=== PATIENT | female | born 1965 | race Caucasian/White ===

== ENCOUNTER 2017-08-07 08:20 | Emergency (ER) | payer SELFPAY ==
[2017-08-07 08:57] LABS: ADD MAN DIFF? NO
[2017-08-07 09:00] LABS: BASO # 0.1 x10^3/uL (0.0-0.2); BASO % 1 % (0-3); EOS % 1 % (0-3); HEMATOCRIT 49.1 % (36.0-47.0); HEMOGLOBIN 16.6 g/dL (12.0-15.5); LYMPH # 1.6 x10^3/uL (1.0-4.8); LYMPH % 18 % (24-48); MEAN CORPUSCULAR HEMOGLOBIN 31 pg (25-35); MEAN CORPUSCULAR HGB CONC 34 g/dL (31-37); MEAN CORPUSCULAR VOLUME 93 fL (79-100); MONO # 0.4 x10^3/uL (0.0-1.1); MONO % 4 % (0-9); NEUT # 6.6 x10^3uL (1.8-7.7); NEUT % 76 % (31-73); PLATELET COUNT 335 x10^3/uL (140-400); RED BLOOD COUNT 5.29 x10^6/uL (3.50-5.40); RED CELL DISTRIBUTION WIDTH 13.1 % (11.5-14.5); WHITE BLOOD COUNT 8.7 x10^3/uL (4.0-11.0)
[2017-08-07] MEDS ORDERED: MORPHINE SULFATE 4 MG/ML DISP.SYRIN. IV/SQ (09:00)
[2017-08-07 09:03] LABS: BILIRUBIN,URINE SMALL (NEG); CLARITY,URINE TURBID; COLOR,URINE AMBER; GLUCOSE,URINE NEGATIVE (NEG); NITRITE,URINE NEGATIVE (NEG); PH,URINE 5.5; PROTEIN,URINE NEGATIVE (NEG-TRACE)
[2017-08-07 09:08] LABS: BARBITURATES NEG (NEG); BENZODIAZEPINES NEG (NEG); CANNABINOIDS NEG (NEG); COCAINE NEG (NEG); METHADONE NEG (NEG); OPIATES NEG (NEG); PHENCYCLIDINE NEG (NEG)
[2017-08-07 09:11] LABS: AMPHETAMINE/METHAMPHETAMINE NEG (NEG); ANION GAP 7 (6-14); BLOOD UREA NITROGEN 16 mg/dL (7-20); CALCIUM 9.7 mg/dL (8.5-10.1); CARBON DIOXIDE 30 mmol/L (21-32); CHLORIDE 102 mmol/L (98-107); ETHANOL, URINE NEG (NEG); GFR 58.7; GLUCOSE 117 mg/dL (70-99); POTASSIUM 3.7 mmol/L (3.5-5.1); SODIUM 139 mmol/L (136-145)
[2017-08-07 09:14] LABS: INR 1.1 (0.8-1.1); PROTHROMBIN TIME PATIENT 13.2 SEC (11.7-14.0)
[2017-08-07 09:15] LABS: ALBUMIN 3.9 g/dL (3.4-5.0); ALK PHOS 86 U/L (46-116); ALT (SGPT) 15 U/L (14-59); AST (SGOT) 12 U/L (15-37); DIRECT BILIRUBIN 0.1 mg/dL (0.0-0.2); LIPASE 67 U/L (73-393); TOTAL BILIRUBIN 0.5 mg/dL (0.2-1.0); TOTAL PROTEIN 7.8 g/dL (6.4-8.2)
[2017-08-07 09:19] LABS: SQUAMOUS EPITHELIAL CELL,UR MANY /LPF
[2017-08-07 09:20] LABS: TROPONINI < 0.017 ng/mL (0.000-0.055)
[2017-08-07 09:20] LABS: BACTERIA,URINE MODERATE /HPF (0-FEW); RBC,URINE OCC /HPF (0-2)
[2017-08-07 09:25] LABS: NT-PRO BNP 33 pg/mL (0-124)
[2017-08-07 09:25] LABS: CREATINE KINASE 80 U/L (26-192)
[2017-08-07 09:26] LABS: CKMB MASS < 0.5 ng/mL (0.0-3.6)
[2017-08-07] MEDS: IV NORMAL SALINE 1000ML BAG 1,000 ML IV (09:26)
[2017-08-07] MEDS: fentaNYL PF VIAL 100 MCG/2 ML VIAL IV (09:27)
== END 2017-08-07 11:18 | disposition left against medical advice (07) ==
LOC: ER 08:20 → 5 SOUTH 10:26
DX: R53.1 Weakness (principal); N30.00 Acute cystitis without hematuria; F17.200 Nicotine dependence, unspecified, uncomplicated; J44.9 Chronic obstructive pulmonary disease, unspecified; Z88.5 Allergy status to narcotic agent; Z88.6 Allergy status to analgesic agent
CPT/HCPCS: 36415; 70450; 71045; 80048; 80076; 80307; 81001; 82553; 83690; 83735; 83880; 84484; 85025; 85610; 87086; 93005; 96361; 96374; 99285-25; J3010; J7030

== ENCOUNTER 2018-01-27 20:41 | Emergency (ER) | payer SELFPAY ==
[~2018-01-27] VITALS: Ht 160 cm; Wt 59.0 kg
[~2018-01-27 20:41] MED LIST: SULF1TAB24 PO
[2018-01-27 21:20] VITALS: BP 129/60
[2018-01-27 21:39] LABS: BILIRUBIN,URINE NEGATIVE (NEG); CLARITY,URINE CLEAR; COLOR,URINE YELLOW; NITRITE,URINE POSITIVE (NEG); PH,URINE 6.5; PROTEIN,URINE NEGATIVE (NEG-TRACE)
[2018-01-27 21:48] LABS: BACTERIA,URINE MANY /HPF (0-FEW); RBC,URINE 0 /HPF (0-2); SQUAMOUS EPITHELIAL CELL,UR FEW /LPF
[2018-01-27 21:49] LABS: AMORPHOUS SEDIMENT,UR PRESENT /HPF
[2018-01-27] MEDS ORDERED: SULF1TAB24 PO (23:02)
--- NOTE | 2018-01-27 23:02 | PHYS DOC ---
Past Medical History Past Medical History: Asthma, COPD, Depression Past Surgical History: Tubal ligation Alcohol Use: Rarely Drug Use: None Adult General Chief Complaint Chief Complaint: URINARY RETENTION HPI HPI Patient is a 53 year old female with history of asthma, COPD who presents with urinary frequency and urgency with urinary incontinence. Symptom onset was approximately 2 weeks ago. No fever chills, nausea vomiting or sweats. No flank pain. No history of pyelonephritis or kidney stones. Patient does not currently have a primary care physician has has not been able to obtain care for his medical condition prior to today's visit.[] Review of Systems Review of Systems Review of symptoms as per history of present illness. All other review symptoms are negative. All other systems were reviewed and found to be within normal limits, except as documented in this note. Current Medications Current Medications Current Medications Medications (Trade) Dose Ordered Sig/Yovani Start Time Stop Time Status Last Admin Dose Admin Trimethoprim/ Sulfamethoxazole (Bactrim Ds) 1 tab 1X ONCE 01/27/18 23:15 01/27/18 23:16 Allergies Allergies Allergies Coded Allergies Type Severity Reaction Last Updated Verified aspirin Allergy Intermediate vomiting 01/27/18 Yes codeine Allergy Intermediate vomiting 08/07/17 Yes hydrocodone Allergy Intermediate vomiting 01/27/18 Yes Physical Exam Physical Exam Constitutional: Well developed, well nourished, no acute distress, non-toxic appearance. [] HENT: Normocephalic, atraumatic, bilateral external ears normal, oropharynx moist, nose normal. [] Eyes: PERRLA, EOMI, conjunctiva normal, no discharge. [] Neck: Normal range of motion, no tenderness, supple, no stridor. [] Cardiovascular:Heart rate regular rhythm, no murmur [] Lungs & Thorax: Bilateral breath sounds clear to auscultation [] Abdomen: Bowel sounds normal, soft, no tenderness, no masses, no pulsatile masses. [] Skin: Warm, dry. [] Back: No tenderness, no CVA tenderness. [] Extremities: No tenderness. [] Current Patient Data Vital Signs Vital Signs Date Time Temp Pulse Resp B/P (MAP) Pulse Ox O2 Delivery O2 Flow Rate FiO2 01/27/18 21:20 97.7 52 16 129/60 (83) 98 Room Air 97.7 Lab Values Laboratory Tests Test 01/27/18 21:20 Urine Collection Type Unknown Urine Color Yellow Urine Clarity Clear Urine pH 6.5 Urine Specific [place] 1.025 Urine Protein Negative mg/dL (NEG-TRACE) Urine Glucose (UA) Negative mg/dL (NEG) Urine Ketones (Stick) Negative mg/dL (NEG) Urine Blood Negative (NEG) Urine Nitrite Positive (NEG) Urine Bilirubin Negative (NEG) Urine Urobilinogen Dipstick 1.0 mg/dL (0.2 mg/dL) Urine Leukocyte Esterase Moderate (NEG) Urine RBC 0 /HPF (0-2) Urine WBC 11-20 /HPF (0-4) Urine Squamous Epithelial Cells Few /LPF Urine Amorphous Sediment Present /HPF Urine Bacteria Many /HPF (0-FEW) Urine Mucus Mod /LPF EKG EKG [] Radiology/Procedures Radiology/Procedures [] Course & Med Decision Making Course & Med Decision Making Pertinent Labs and Imaging studies reviewed. (See chart for details) [Abdomen soft, nontender. Persistent biotics given in the ED. Recommend close PCP follow-up for testing urine. Return precautions reviewed] Dragon Disclaimer Dragon Disclaimer This electronic medical record was generated, in whole or in part, using a voice recognition dictation system. Departure Departure Impression: Primary Impression: Urinary tract infection Additional Impression: Urinary incontinence Disposition: HOME, SELF-CARE Condition: GOOD Referrals: NO PCP (PCP) Patient Instructions: Urinary Tract Infection Additional Instructions: Please increase fluids and take antibiotics as directed. Follow-up with PCP in one week for reevaluation. Scripts Sulfamethoxazole/Trimethoprim (BACTRIM DS TABLET) 1 Each Tablet 1 TAB PO BID, #14 TAB Prov: RAJ JONES DO 01/27/18 Problem Qualifiers RAJ JONES DO Jan 27, 2018 23:02
[2018-01-27] MEDS ORDERED: SMZ/TMP 800/160MG TABLET. PO ONE (23:15)
== END 2018-01-27 23:32 | disposition home or self-care (01) ==
LOC: ER 20:41
DX: N39.0 Urinary tract infection, site not specified (principal); J44.9 Chronic obstructive pulmonary disease, unspecified; F32.9 Major depressive disorder, single episode, unspecified; Z98.51 Tubal ligation status; Z88.5 Allergy status to narcotic agent; Z88.6 Allergy status to analgesic agent
CPT/HCPCS: 81001; 87086; 99284

== ENCOUNTER 2020-11-03 09:26 | Emergency (ER) | payer SELFPAY ==
[~2020-11-03] VITALS: Ht 162.6 cm; Wt 72.7 kg
--- NOTE | 2020-11-03 10:21 | PHYS DOC ---
Past Medical History Past Medical History: Asthma, COPD, Depression Past Surgical History: Tubal ligation Smoking Status: Current Every Day Smoker Additional Information: 1 PPD Alcohol Use: None Drug Use: None General Adult EDM: Chief Complaint: HEADACHE HPI: HPI: Patient is a 55-year-old female here for multiple issues. States she has had waxing and waning episodes of fatigue, headache and occasional dizziness without any falls. States it is from dehydration as patient self admits that she has poor fluid/water intake stating "I just do not drink any, I do not like it". Reports she was at a October constitution party outside, was in the heat and swimming all day and had x1 alcoholic beverage when later in the evening she had another episode prompting her to sit down for a while. Reports her sister was concerned about potential dehydration and advised her to come into the ER for evaluation at that time. Nonetheless, patient has been talking to her sister more and there was ongoing concern about dehydration and wanting answers about the cause of patient's fatigue and headache so patient was transported to our ER via POV for evaluation. There has been no fever, medication changes, known sick contacts or long distance travel, chest pain, ripping or tearing sensation in chest, shortness of breath, abdominal pain, dysuria, changes in motor or sensory or neuro function. Patient admits tobacco abuse, reports drinking her first alcoholic beverage in 10 years this past 30 October constitution party, denies any history of illicit drug use Review of Systems: Review of Systems: Fourteen body systems of review of systems have been reviewed. See HPI for pertinent positives and negative responses, other amador all other systems are negative, non-pertinent or non-contributory Heart Score: C/O Chest Pain: No HEART Score for Chest Pain: HEART Score for Chest Pain Response (Comments) Value History Slighlty/Non-Suspicious 0 ECG Normal 0 Age >45 - < 65 1 Risk Factors 1 or 2 Risk Factors 1 Troponin < Normal Limit 0 Total 2 Risk Factors: Risk Factors: DM, Current or recent (<one month) smoker, HTN, HLP, family history of CAD, obesity. Risk Scores: Score 0 - 3: 2.5% MACE over next 6 weeks - Discharge Home Score 4 - 6: 20.3% MACE over next 6 weeks - Admit for Clinical Observation Score 7 - 10: 72.7% MACE over next 6 weeks - Early Invasive Strategies Allergies: Allergies: Allergies Coded Allergies Type Severity Reaction Last Updated Verified aspirin Allergy Intermediate vomiting 01/27/18 Yes codeine Allergy Intermediate vomiting 08/07/17 Yes hydrocodone Allergy Intermediate vomiting 01/27/18 Yes ibuprofen Allergy Intermediate UNKNOWN 11/03/20 Yes oxycodone Allergy Intermediate UNKNOWN 11/03/20 Yes Physical Exam: PE: Constitutional: Well developed, well nourished, no acute distress, non-toxic appearance. HENT: Normocephalic, atraumatic, bilateral external ears normal, oropharynx moist, no oral exudates, nose normal. Eyes: PERRLA, EOMI, conjunctiva normal, no discharge. Neck: Normal range of motion, no tenderness, supple, no stridor. Cardiovascular: Heart rate regular, sinus rhythm, no murmurs rubs or gallops Lungs & Thorax: Bilateral breath sounds clear to auscultation Abdomen: Bowel sounds normal, soft, no tenderness, no masses, no pulsatile masses. Nonsurgical abdomen, no peritoneal signs Skin: Warm, dry, no erythema, no rash. Back: No tenderness, no CVA tenderness. Extremities: No tenderness, no cyanosis, no clubbing, ROM intact, no edema. Neurologic: Alert and oriented X 3, cranial nerves II through XII intact, gait unremarkable, normal motor & sensory function, no focal deficits noted. Psychologic: Affect normal, judgement normal, mood normal. Current Patient Data: Labs: Laboratory Tests Test 11/03/20 10:37 White Blood Count 6.0 x10^3/uL Red Blood Count 4.77 x10^6/uL Hemoglobin 14.6 g/dL Hematocrit 43.7 % Mean Corpuscular Volume 92 fL Mean Corpuscular Hemoglobin 31 pg Mean Corpuscular Hemoglobin Concent 33 g/dL Red Cell Distribution Width 13.3 % Platelet Count 316 x10^3/uL Neutrophils (%) (Auto) 45 % Lymphocytes (%) (Auto) 48 % Monocytes (%) (Auto) 5 % Eosinophils (%) (Auto) 1 % Basophils (%) (Auto) 1 % Neutrophils # (Auto) 2.7 x10^3/uL Lymphocytes # (Auto) 2.9 x10^3/uL Monocytes # (Auto) 0.3 x10^3/uL Eosinophils # (Auto) 0.1 x10^3/uL Basophils # (Auto) 0.1 x10^3/uL Sodium Level 143 mmol/L Potassium Level 4.3 mmol/L Chloride Level 108 mmol/L Carbon Dioxide Level 28 mmol/L Anion Gap 7 Blood Urea Nitrogen 15 mg/dL Creatinine 1.0 mg/dL Estimated GFR (Cockcroft-Gault) 58.0 BUN/Creatinine Ratio 15 Glucose Level 100 mg/dL Calcium Level 9.4 mg/dL Total Bilirubin 0.4 mg/dL Aspartate Amino Transf (AST/SGOT) 18 U/L Alanine Aminotransferase (ALT/SGPT) 19 U/L Alkaline Phosphatase 102 U/L Creatine Kinase 136 U/L Troponin I Quantitative < 0.017 ng/mL Total Protein 6.8 g/dL Albumin 4.0 g/dL Albumin/Globulin Ratio 1.4 Current Medications Medications (Trade) Dose Ordered Sig/Yovani Route PRN Reason Start Time Stop Time Status Last Admin Dose Admin Sodium Chloride 1,000 ml @ 1,000 mls/hr 1X ONCE IV 11/03/20 10:30 11/03/20 11:29 DC 11/03/20 10:40 Vital Signs: Vital Signs Date Time Temp Pulse Resp B/P (MAP) Pulse Ox O2 Delivery O2 Flow Rate FiO2 11/03/20 09:41 98.1 50 17 134/61 (83) 99 Room Air 98.1 EKG: EKG: EKG ordered and interpreted by myself 1049 hrs. as sinus bradycardia at 45 bpm, unremarkable intervals, no axis deviation, no acute ischemic findings, no STEMI Radiology/Procedures: Radiology/Procedures: [] Course & Med Decision Making: Course & Med Decision Making ABCs unremarkable. I disclosed entirety of ER findings and discussed most likely diagnosis of headache secondary to dehydration. Other diagnoses were discussed with patient such as stroke and other emergent pathology but all deemed less likely causes of patient's presentation. During decision to defer any further work-up due to asymptomatic patient with no focal deficits or other complaints. Plan of care discussed at length with need for close outpatient follow-up to review today's ER visit stressed. Strict return precautions were also discussed at length with good understanding by patient. Patient voiced understanding and agreement with the plan. Patient knows to come back for repeat evaluation if concerning signs or symptoms present prior to outpatient follow-up. Hemodynamically stable, ambulatory and well-appearing at time of disposition. Dragon Disclaimer: Dragon Disclaimer: This electronic medical record was generated, in whole or in part, using a voice recognition dictation system. Departure Departure Impression: Primary Impression: Dehydration Additional Impression: Headache Disposition: HOME / SELF CARE / HOMELESS Condition: IMPROVED Referrals: NO PCP (PCP) Additional Instructions: You were seen for a headache. The etiology of which is likely related to dehydration due to your poor water intake. You should increase this. As also disclosed, you should use resources given to you at ER departure to establish care with a local primary care physician to follow-up on today's visit and discuss need for further work-up if needed. You should return to the ED if you develop worsening pain, vision change, numbness, tingling, weakness, vomiting, fever, neck pain, or any other new or concerning symptoms. GERI SIMMONS DO Nov 03, 2020 10:21
[2020-11-03] MEDS ORDERED: IV NORMAL SALINE 1000ML BAG 1,000 ML IV ONE (10:30)
[2020-11-03 10:51] LABS: BASO # 0.1 x10^3/uL (0.0-0.2); BASO % 1 % (0-3); EOS # 0.1 x10^3/uL (0.0-0.7); EOS % 1 % (0-3); HEMATOCRIT 43.7 % (36.0-47.0); HEMOGLOBIN 14.6 g/dL (12.0-15.5); LYMPH # 2.9 x10^3/uL (1.0-4.8); LYMPH % 48 % (24-48); MEAN CORPUSCULAR HEMOGLOBIN 31 pg (25-35); MEAN CORPUSCULAR HGB CONC 33 g/dL (31-37); MEAN CORPUSCULAR VOLUME 92 fL (79-100); MONO # 0.3 x10^3/uL (0.0-1.1); MONO % 5 % (0-9); NEUT # 2.7 x10^3/uL (1.8-7.7); NEUT % 45 % (31-73); PLATELET COUNT 316 x10^3/uL (140-400); RED BLOOD COUNT 4.77 x10^6/uL (3.50-5.40); RED CELL DISTRIBUTION WIDTH 13.3 % (11.5-14.5)
[2020-11-03 11:05] LABS: CALCIUM 9.4 mg/dL (8.5-10.1); POTASSIUM 4.3 mmol/L (3.5-5.1)
[2020-11-03 11:15] LABS: ALBUMIN/GLOBULIN RATIO 1.4 (1.0-1.7); TOTAL BILIRUBIN 0.4 mg/dL (0.2-1.0); TOTAL PROTEIN 6.8 g/dL (6.4-8.2)
[2020-11-03 11:43] VITALS: BP 189/77
== END 2020-11-03 11:52 | disposition home or self-care (01) ==
LOC: ER 09:26
DX: E86.0 Dehydration (principal); R51.9 Headache, unspecified; R42 Dizziness and giddiness; R53.83 Other fatigue; J44.9 Chronic obstructive pulmonary disease, unspecified; F17.200 Nicotine dependence, unspecified, uncomplicated
CPT/HCPCS: 36415; 80053; 82550; 84484; 85025; 93005; 96360; 99284; J7030

== ENCOUNTER 2021-01-30 08:43 | Emergency (ER) | payer SELFPAY ==
[~2021-01-30] VITALS: Ht 162.6 cm; Wt 72.7 kg
[2021-01-30 09:37] LABS: BILIRUBIN,URINE NEGATIVE (NEG); CLARITY,URINE CLEAR; COLOR,URINE YELLOW; NITRITE,URINE NEGATIVE (NEG); PH,URINE 7.5 (<5.0-8.0); PROTEIN,URINE NEGATIVE (NEG-TRACE)
[2021-01-30 09:40] LABS: BASO # 0.1 x10^3/uL (0.0-0.2); BASO % 1 % (0-3); EOS # 0.1 x10^3/uL (0.0-0.7); EOS % 2 % (0-3); HEMATOCRIT 45.4 % (36.0-47.0); HEMOGLOBIN 15.6 g/dL (12.0-15.5); LYMPH # 2.5 x10^3/uL (1.0-4.8); LYMPH % 33 % (24-48); MEAN CORPUSCULAR HEMOGLOBIN 32 pg (25-35); MEAN CORPUSCULAR HGB CONC 34 g/dL (31-37); MEAN CORPUSCULAR VOLUME 92 fL (79-100); MONO # 0.4 x10^3/uL (0.0-1.1); MONO % 6 % (0-9); NEUT # 4.4 x10^3/uL (1.8-7.7); NEUT % 58 % (31-73); PLATELET COUNT 315 x10^3/uL (140-400); RED BLOOD COUNT 4.95 x10^6/uL (3.50-5.40); RED CELL DISTRIBUTION WIDTH 14.1 % (11.5-14.5); WHITE BLOOD COUNT 7.5 x10^3/uL (4.0-11.0)
--- NOTE | 2021-01-30 09:46 | PHYS DOC ---
Past Medical History Past Medical History: Asthma, COPD, Depression Additional Past Medical Histor: renal stones Past Surgical History: Tubal ligation Smoking Status: Current Every Day Smoker Alcohol Use: None Drug Use: None General Adult EDM: Chief Complaint: PAIN ON URINATION HPI: HPI: Patient is a 56 year old female with history of COPD, smoking who presents with left-sided flank pain, hematuria, and urinary incontinence. Has been ongoing for several months. Was seen at an urgent care last week, was found to have hematuria and was started on Keflex for treatment of potential UTI. Pain has persisted. States that she is frequently having incontinent episodes. Not on any medications aside from Keflex. History of tubal ligation, but no other abdominal/pelvic surgeries. No vaginal discharge or bleeding. Review of Systems: Review of Systems: Constitutional: Denies fever or chills. [] Eyes: Denies change in visual acuity. [] HENT: Denies nasal congestion or sore throat. [] Respiratory: Denies cough or shortness of breath. [] Cardiovascular: Denies chest pain or edema. [] GI: Denies abdominal pain, nausea, vomiting, bloody stools or diarrhea. [] : Reports hematuria, incontinence, and left flank pain [] Musculoskeletal: Denies back pain or joint pain. [] Integument: Denies rash. [] Neurologic: Denies headache, focal weakness or sensory changes. [] Endocrine: Denies polyuria or polydipsia. [] Lymphatic: Denies swollen glands. [] Psychiatric: Denies depression or anxiety. [] Heart Score: C/O Chest Pain: No Risk Factors: Risk Factors: DM, Current or recent (<one month) smoker, HTN, HLP, family history of CAD, obesity. Risk Scores: Score 0 - 3: 2.5% MACE over next 6 weeks - Discharge Home Score 4 - 6: 20.3% MACE over next 6 weeks - Admit for Clinical Observation Score 7 - 10: 72.7% MACE over next 6 weeks - Early Invasive Strategies Allergies: Allergies: Allergies Coded Allergies Type Severity Reaction Last Updated Verified aspirin Allergy Intermediate vomiting 01/27/18 Yes codeine Allergy Intermediate vomiting 08/07/17 Yes hydrocodone Allergy Intermediate vomiting 01/27/18 Yes ibuprofen Allergy Intermediate UNKNOWN 11/03/20 Yes oxycodone Allergy Intermediate UNKNOWN 11/03/20 Yes Physical Exam: PE: Constitutional: Well developed, well nourished, no acute distress, non-toxic appearance. [] HENT: Normocephalic, atraumatic, bilateral external ears normal, oropharynx moist, no oral exudates, nose normal. [] Eyes: PERRLA, EOMI, conjunctiva normal, no discharge. [] Neck: Normal range of motion, no tenderness, supple, no stridor. [] Cardiovascular:Heart rate regular rhythm, no murmur [] Lungs & Thorax: Bilateral breath sounds clear to auscultation [] Abdomen: Midline suprapubic tenderness to palpation with involuntary guarding. : External exam with no evidence of urethral obstruction or pelvic organ prolapse. Skin: Warm, dry, no erythema, no rash. [] Back: No tenderness, no CVA tenderness. [] Extremities: No tenderness, no cyanosis, no clubbing, ROM intact, no edema. [] Neurologic: Alert and oriented X 3, normal motor function, normal sensory function, no focal deficits noted. [] Psychologic: Affect normal, judgement normal, mood normal. [] Current Patient Data: Labs: Laboratory Tests Test 01/30/21 09:20 White Blood Count 7.5 x10^3/uL (4.0-11.0) Red Blood Count 4.95 x10^6/uL (3.50-5.40) Hemoglobin 15.6 g/dL (12.0-15.5) H Hematocrit 45.4 % (36.0-47.0) Mean Corpuscular Volume 92 fL (79-100) Mean Corpuscular Hemoglobin 32 pg (25-35) Mean Corpuscular Hemoglobin Concent 34 g/dL (31-37) Red Cell Distribution Width 14.1 % (11.5-14.5) Platelet Count 315 x10^3/uL (140-400) Neutrophils (%) (Auto) 58 % (31-73) Lymphocytes (%) (Auto) 33 % (24-48) Monocytes (%) (Auto) 6 % (0-9) Eosinophils (%) (Auto) 2 % (0-3) Basophils (%) (Auto) 1 % (0-3) Neutrophils # (Auto) 4.4 x10^3/uL (1.8-7.7) Lymphocytes # (Auto) 2.5 x10^3/uL (1.0-4.8) Monocytes # (Auto) 0.4 x10^3/uL (0.0-1.1) Eosinophils # (Auto) 0.1 x10^3/uL (0.0-0.7) Basophils # (Auto) 0.1 x10^3/uL (0.0-0.2) Laboratory Tests 01/30/21 09:20 Vital Signs: Vital Signs Date Time Temp Pulse Resp B/P (MAP) Pulse Ox O2 Delivery O2 Flow Rate FiO2 01/30/21 09:07 98.7 88 20 149/67 (94) 99 Room Air 98.7 EKG: EKG: [] Radiology/Procedures: Radiology/Procedures: [] Impression: [facility] [address] [place], [place] [id number] IMAGING REPORT Signed PATIENT: DOMENICA OHARA GACCOUNT: [id number] : 1965 LOCATION: ER AGE: 56 SEX: F EXAM STATUS: REG ER ORD. PHYSICIAN: JANELLE GONZALEZ MD REASON: left flank pain, hematuria PROCEDURE: CT ABD PELV W/ IV CONTRST ONLY EXAMINATION: CT abdomen and pelvis with IV contrast. INDICATION:56 years, Female, left flank pain. TECHNIQUE: Axial CT images of the abdomen and pelvis were obtained. Coronal and sagittal reformatted performed. COMPARISON: None. Exposure: One or more of the following individualized dose reduction techniques were utilized for this examination: 1. Automated exposure control 2. Adjustment of the mA and/or kV according to patient size 3. Use of iterative reconstruction technique. FINDINGS: LOWER CHEST: Unremarkable. 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 Normal symmetric enhancement of the kidneys with no hydronephrosis or nephrolithiasis. There is a 2 mm calculus in the dependent portion of the urinary bladder medial to the right ureterovesical junction. No suspicious focal hepatic lesion. Calcified granulomas in the spleen. Gallbladder, biliary ducts and pancreas are unremarkable. No adrenal nodule. No bowel obstruction or wall thickening. Normal appendix. Mild aortoiliac atherosclerotic calcifications without narrowing or dilatation. No lymphad enopathy in the abdomen or pelvis by size criteria. No pneumoperitoneum or ascites. Anteverted uterus. No suspicious pelvic masses. MUSCULOSKELETAL: No acute osseous process. Chronic appearing fracture in the right transverse process of L4. Small fat-containing umbilical hernia. IMPRESSION: 1. No hydronephrosis or nephrolithiasis in either kidney. 2. Punctate urinary bladder stone medial to the right ureterovesicular junction, may represent a recently passed stone. Electronically signed by: Sharath Benjamin MD (01/30/2021 10:35 AM) [facility] DICTATED and SIGNED BY: SHARATH BENJAMIN MD DATE: 01/30/21 [id number] 0 Course & Med Decision Making: Course & Med Decision Making Pertinent Labs and Imaging studies reviewed. (See chart for details) Patient is a 56-year-old female with history of COPD and tobacco abuse who presents with subacute hematuria, urinary incontinence, and left flank pain. On arrival is afebrile, hemodynamically stable. Overall well-appearing on examination. Abdominal exam with suprapubic tenderness to palpation. Given length of symptoms, will obtain CT abdomen/pelvis to evaluate for kidney stone, finding secondary to pyelonephritis, renal mass,, or pelvic pathology that may be contributing to her symptoms. 0946 Labs reassuring. No evidence of infection on UA. RBCs have since cleared. CT shows a urinary bladder stone, that may be a recently passed kidney stone which could explain some of her symptoms. Potentially bladder irritation leading to incontinence, but ultimately incon tinence is of unclear etiology at this time. Feel she will be safe for discharge. I provided the numbers of a primary care group through [facility] and for community urology practices for her ongoing incontinence 1055 Dragon Disclaimer: Yaquelin Disclaimer: This electronic medical record was generated, in whole or in part, using a voice recognition dictation system. Departure Departure Impression: Primary Impression: Bladder stone Additional Impression: Urinary incontinence Disposition: 01 HOME / SELF CARE / HOMELESS Condition: STABLE Referrals: NO PCP (PCP) Patient Instructions: Urinary Incontinence-Brief Additional Instructions: There is evidence of a stone in your bladder. This may be a recently passed kidney stone. Bladder irritation may have caused your incontinence, but overall it is unclear exactly why you are having incontinence. I would like you to follow-up with a primary care provider and potentially with a urologist. Please read the insert about urinary incontinence. Please look up Hugo walters, as this may help with your incontinence Please finish your prescription for antibiotics that were given by urgent care. Since you do not have a PCP, please call the number for the [facility] at [phone]. Please call one of the follow practice locations for urology follow up. [facility] / [place], [place] [address] [place], [place] [id number] [place] [address] [place] [address] [facility], [address] [place] [address] JANELLE GONZALEZ MD Jan 30, 2021 09:46
[2021-01-30 09:51] LABS: CALCIUM 9.6 mg/dL (8.5-10.1); GFR 57.8; POTASSIUM 3.9 mmol/L (3.5-5.1)
[2021-01-30 09:52] LABS: ALBUMIN 3.8 g/dL (3.4-5.0); TOTAL BILIRUBIN 0.5 mg/dL (0.2-1.0); TOTAL PROTEIN 7.8 g/dL (6.4-8.2)
[2021-01-30] MEDS ORDERED: IOHEXOL 300 MG/ML 100ML VIAL. PO ONE (10:00)
[2021-01-30 10:05] LABS: BACTERIA,URINE 0 /HPF (0-FEW); RBC,URINE 0 /HPF (0-2); WBC,URINE OCC /HPF (0-4)
--- NOTE | 2021-01-30 10:37 | RAD ---
EXAMINATION: CT abdomen and pelvis with IV contrast. INDICATION:56 years, Female, left flank pain. TECHNIQUE: Axial CT images of the abdomen and pelvis were obtained. Coronal and sagittal reformatted performed. COMPARISON: None. Exposure: One or more of the following individualized dose reduction techniques were utilized for thi s examination: 1. Automated exposure control 2. Adjustment of the mA and/or kV according to patient size 3. Use of iterative reconstruction technique. FINDINGS: LOWER CHEST: Unremarkable. 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 Normal symmetric enhancement of the kidney s with no hydronephrosis or nephrolithiasis. There is a 2 mm calculus in the dependent portion of the urinary bladder medial to the right ureterovesical junction. No suspicious focal hepatic lesion. Calcified granulomas in the spleen. Gallbladder, biliary ducts an d pancreas are unremarkable. No adrenal nodule. No bowel obstruction or wall thickening. Normal appendix. Mild aortoiliac atherosclerotic calcificati ons without narrowing or dilatation. No lymphadenopathy in the abdomen or pelvis by size criteria. No pneumoperitoneum or ascites. Anteverted uterus. No suspicious pelvic masses. MUSCULOSKELETAL: No acute osseous process. Chronic appearing fracture in the right transverse process of L4. Small fat -containing umbilical hernia. IMPRESSION: 1. No hydronephrosis or nephrolithiasis in either kidney. 2. Punctate urinary bladder stone medial to the right ureterovesicular junction, may represent a rece ntly passed stone. Electronically signed by: Pedro Benjamin MD (01/30/2021 10:35 AM) [facility]
[2021-01-30 11:10] VITALS: BP 132/62
== END 2021-01-30 11:39 | disposition home or self-care (01) ==
LOC: ER 08:43
DX: N21.0 Calculus in bladder (principal); R32 Unspecified urinary incontinence; R31.9 Hematuria, unspecified; R10.9 Unspecified abdominal pain; J44.9 Chronic obstructive pulmonary disease, unspecified; F17.200 Nicotine dependence, unspecified, uncomplicated; Z98.51 Tubal ligation status; Z88.5 Allergy status to narcotic agent; Z88.6 Allergy status to analgesic agent; Z88.8 Allergy status to other drugs, medicaments and biological substances
CPT/HCPCS: 36415; 74177; 80053; 81001; 85025; 99285; Q9967

== ENCOUNTER 2021-06-08 08:20 | Emergency (ER) | payer SELFPAY ==
[~2021-06-08] VITALS: Ht 165.1 cm; Wt 65.0 kg
[2021-06-08] MEDS ORDERED: IV NORMAL SALINE 1000ML BAG 1,000 ML IV ONE (09:00)
--- NOTE | 2021-06-08 09:00 | PHYS DOC ---
Past Medical History Past Medical History: Asthma, COPD, Depression Additional Past Medical Histor: renal stones Past Surgical History: Tubal ligation Smoking Status: Current Every Day Smoker Alcohol Use: None Drug Use: None General Adult EDM: Chief Complaint: FLANK PAIN HPI: HPI: Patient is a 56 year old female who present to ER for evaluation of left flank pain started 2 days ago. Patient also have pain with urination and frequency. Patient denies any fever, no cough, no chest pain. Patient said the pain is sharp aching in nature. Patient says she is allergic to all the pain medication so she cannot take anything. Review of Systems: Review of Systems: Constitutional: Denies fever or chills. [] Eyes: Denies change in visual acuity. [] HENT: Denies nasal congestion or sore throat. [] Respiratory: Denies cough or shortness of breath. [] Cardiovascular: Denies chest pain or edema. [] GI: Positive for left flank pain, no nausea, vomiting, bloody stools or diarrhea. [] : Positive for dysuria and frequency. Musculoskeletal: Denies back pain or joint pain. [] Integument: Denies rash. [] Neurologic: Denies headache, focal weakness or sensory changes. [] Endocrine: Denies polyuria or polydipsia. [] Lymphatic: Denies swollen glands. [] Psychiatric: Denies depression or anxiety. [] Heart Score: C/O Chest Pain: N/A Risk Factors: Risk Factors: DM, Current or recent (<one month) smoker, HTN, HLP, family history of CAD, obesity. Risk Scores: Score 0 - 3: 2.5% MACE over next 6 weeks - Discharge Home Score 4 - 6: 20.3% MACE over next 6 weeks - Admit for Clinical Observation Score 7 - 10: 72.7% MACE over next 6 weeks - Early Invasive Strategies Allergies: Allergies: Allergies Coded Allergies Type Severity Reaction Last Updated Verified aspirin Allergy Intermediate vomiting 06/08/21 Yes codeine Allergy Intermediate vomiting 06/08/21 Yes hydrocodone Allergy Intermediate vomiting 06/08/21 Yes ibuprofen Allergy Intermediate UNKNOWN 06/08/21 Yes oxycodone Allergy Intermediate UNKNOWN 06/08/21 Yes Physical Exam: PE: Constitutional: Well developed, well nourished, no acute distress, non-toxic appearance. [] HENT: Normocephalic, atraumatic, bilateral external ears normal, oropharynx moist, no oral exudates, nose normal. [] Eyes: PERRLA, EOMI, conjunctiva normal, no discharge. [] Neck: Normal range of motion, no tenderness, supple, no stridor. [] Cardiovascular:Heart rate regular rhythm, no murmur [] Lungs & Thorax: Bilateral breath sounds clear to auscultation [] Abdomen: Bowel sounds normal, soft, Left flank is tender to palpation, no masses, no pulsatile masses. [] Skin: Warm, dry, no erythema, no rash. [] Back: No tenderness, Left CVA tenderness to palpawtion, Extremities: No tenderness, no cyanosis, no clubbing, ROM intact, no edema. [] Neurologic: Alert and oriented X 3, normal motor function, normal sensory function, no focal deficits noted. [] Psychologic: Affect normal, judgement normal, mood normal. [] Current Patient Data: Labs: Laboratory Tests Test 06/08/21 08:27 06/08/21 09:05 Urine Collection Type Unknown Urine Color Yellow Urine Clarity Clear Urine pH 6.5 Urine Specific [place] 1.015 Urine Protein Negative mg/dL Urine Glucose (UA) Negative mg/dL Urine Ketones (Stick) Negative mg/dL Urine Blood Negative Urine Nitrite Negative Urine Bilirubin Negative Urine Urobilinogen Dipstick 0.2 mg/dL Urine Leukocyte Esterase Small Urine RBC 0 /HPF Urine WBC 0 /HPF Urine Squamous Epithelial Cells Many /LPF Urine Bacteria Few /HPF Urine Mucus Slight /LPF White Blood Count 6.7 x10^3/uL Red Blood Count 4.67 x10^6/uL Hemoglobin 14.2 g/dL Hematocrit 43.2 % Mean Corpuscular Volume 93 fL Mean Corpuscular Hemoglobin 30 pg Mean Corpuscular Hemoglobin Concent 33 g/dL Red Cell Distribution Width 13.4 % Platelet Count 297 x10^3/uL Neutrophils (%) (Auto) 55 % Lymphocytes (%) (Auto) 36 % Monocytes (%) (Auto) 6 % Eosinophils (%) (Auto) 2 % Basophils (%) (Auto) 1 % Neutrophils # (Auto) 3.7 x10^3/uL Lymphocytes # (Auto) 2.4 x10^3/uL Monocytes # (Auto) 0.4 x10^3/uL Eosinophils # (Auto) 0.1 x10^3/uL Basophils # (Auto) 0.1 x10^3/uL Sodium Level 143 mmol/L Potassium Level 4.2 mmol/L Chloride Level 107 mmol/L Carbon Dioxide Level 28 mmol/L Anion Gap 8 Blood Urea Nitrogen 12 mg/dL Creatinine 0.9 mg/dL Estimated GFR (Cockcroft-Gault) 65.2 BUN/Creatinine Ratio 13 Glucose Level 86 mg/dL Calcium Level 8.7 mg/dL Magnesium Level 2.0 mg/dL Total Bilirubin 0.2 mg/dL Aspartate Amino Transf (AST/SGOT) 13 U/L Alanine Aminotransferase (ALT/SGPT) 18 U/L Alkaline Phosphatase 96 U/L Total Protein 6.9 g/dL Albumin 3.1 g/dL Albumin/Globulin Ratio 0.8 Current Medications Medications (Trade) Dose Ordered Sig/Yovani Route PRN Reason Start Time Stop Time Status Last Admin Dose Admin Sodium Chloride 1,000 ml @ 1,000 mls/hr 1X ONCE IV 06/08/21 09:00 06/08/21 09:59 DC 06/08/21 09:05 Ceftriaxone Sodium (Rocephin) 1 gm 1X ONCE IVP 06/08/21 10:45 06/08/21 10:46 UNV Vital Signs: Vital Signs Date Time Temp Pulse Resp B/P (MAP) Pulse Ox O2 Delivery O2 Flow Rate FiO2 06/08/21 08:38 98.5 50 15 152/70 (97) 95 Room Air 98.5 Radiology/Procedures: Radiology/Procedures: [facility] [address] [place], [place] [id number] IMAGING REPORT Signed PATIENT: DOMENICA OHARA GACCOUNT: [id number] : 1965 LOCATION: ER AGE: 56 SEX: F EXAM STATUS: REG ER ORD. PHYSICIAN: VERONICA GILES DO REASON: left side flank pain, hx of kidney stone PROCEDURE: CT ABDOMEN PELVIS WO CONTRAST CT of the abdomen and pelvis without contrast. 06/08/2021 9:21 AM Indication: Reason: left side flank pain, hx of kidney stone / Comparison Study: CT of the abdomen and pelvis without contrast January 30, 2021 Technique: Multidetector CT imaging of the abdomen pelvis is obtained without administration of contrast. Findings: The visualized bilateral lung bases are clear. Prior granulomatous changes noted in the spleen, and to a lesser degree the liver. Liver the liver and spleen are otherwise unremarkable. The bilateral adrenal glands, gallbladder, and pancreas have a normal noncontrast enhanced appearance. The bilateral kidneys are grossly unremarkable in appearance. There is no evidence of nephrolithiasis or obstructive uropathy. The ureters are normal in course and caliber. The bladder is grossly unremarkable. There is no significant free fluid or free air in the abdomen or pelvis. There is no evidence of bowel obstruction or significant inflamatory change. The appendix is well visualized and grossly normal. There is no acute osseous abnormality identified. Impression: 1. No evidence of acute intra-abdominal abnormality 2. No evidence of nephrolithiasis or acute obstructive uropathy. CT DOSING PQRS STATEMENT: One or more of the following individualized dose reduction techniques were utilized for this examination: 1. Automated exposure control 2. Adjustment of the mA and/or kV according to patient size 3. Use of iterative reconstruction technique Electronically signed by: Flynn Lester MD (06/08/2021 9:43 AM) [id number] DICTATED and SIGNED BY: FLYNN LESTER MD DATE: 06/08/21 [id number] 0 Course & Med Decision Making: Course & Med Decision Making Pertinent Labs and Imaging studies reviewed. (See chart for details) Patient is a 56-year-old female who present to ER for evaluation of left-sided flank pain with frequent urination and dysuria. CT scan her abdomen pelvis did not show any acute problem. Patient was found to have urinary tract infection. Patient be discharged home with antibiotics. Patient will need to follow-up with her family physician. Yaquelin Disclaimer: Yaquelin Disclaimer: This electronic medical record was generated, in whole or in part, using a voice recognition dictation system. Departure Departure Impression: Primary Impression: UTI (urinary tract infection) Additional Impression: Flank pain Disposition: 01 HOME / SELF CARE / HOMELESS Condition: STABLE Referrals: NO PCP (PCP) Follow up with your doctor as needed Patient Instructions: Flank Pain, Urinary Tract Infection Additional Instructions: Thank you for visiting our Emergency Department. We appreciate you trusting us with your care. If any additional problems come up don't hesitate to return to visit us. Please follow up with your primary care provider so they can plan additional care if needed and know about the problem that you had. If symptoms worsen come back to the Emergency Department. Any concerning symptoms that start such as chest pain, shortness of air, weakness or numbness on one side of the body, running high fevers or any other concerning symptoms return to the ER. Scripts Sulfamethoxazole/Trimethoprim (BACTRIM DS TABLET) 1 Each Tablet 1 TAB PO BID for 7 Days, #14 TAB 0 Refills Prov: VERONICA GILES DO 06/08/21 VERONICA GILES DO Jun 08, 2021 09:00
[2021-06-08 09:24] LABS: CALCIUM 8.7 mg/dL (8.5-10.1); CREATININE 0.9 mg/dL (0.6-1.0); GFR 65.2; POTASSIUM 4.2 mmol/L (3.5-5.1)
[2021-06-08 09:29] LABS: ALBUMIN 3.1 g/dL (3.4-5.0); ALBUMIN/GLOBULIN RATIO 0.8 (1.0-1.7); TOTAL BILIRUBIN 0.2 mg/dL (0.2-1.0); TOTAL PROTEIN 6.9 g/dL (6.4-8.2)
[2021-06-08 09:34] LABS: BASO # 0.1 x10^3/uL (0.0-0.2); BASO % 1 % (0-3); EOS # 0.1 x10^3/uL (0.0-0.7); EOS % 2 % (0-3); HEMATOCRIT 43.2 % (36.0-47.0); HEMOGLOBIN 14.2 g/dL (12.0-15.5); LYMPH # 2.4 x10^3/uL (1.0-4.8); LYMPH % 36 % (24-48); MEAN CORPUSCULAR HEMOGLOBIN 30 pg (25-35); MEAN CORPUSCULAR HGB CONC 33 g/dL (31-37); MEAN CORPUSCULAR VOLUME 93 fL (79-100); MONO # 0.4 x10^3/uL (0.0-1.1); MONO % 6 % (0-9); NEUT # 3.7 x10^3/uL (1.8-7.7); NEUT % 55 % (31-73); PLATELET COUNT 297 x10^3/uL (140-400); RED BLOOD COUNT 4.67 x10^6/uL (3.50-5.40); RED CELL DISTRIBUTION WIDTH 13.4 % (11.5-14.5); WHITE BLOOD COUNT 6.7 x10^3/uL (4.0-11.0)
[2021-06-08 09:39] LABS: BILIRUBIN,URINE NEGATIVE (NEG); CLARITY,URINE CLEAR; COLOR,URINE YELLOW; NITRITE,URINE NEGATIVE (NEG); PH,URINE 6.5 (<5.0-8.0); PROTEIN,URINE NEGATIVE (NEG-TRACE); UROBILINOGEN,URINE 0.2 mg/dL (0.2 mg/dL)
--- NOTE | 2021-06-08 09:46 | RAD ---
CT of the abdomen and pelvis without contrast. 06/08/2021 9:21 AM Indication: Reason: left side flank pain, hx of kidney stone / Comparison Study: CT of the abdomen and pelvis without contrast January 30, 2021 Technique: Multidetector CT imaging of the abdomen pelvis is obtained without administration of contr ast. Findings: The visualized bilateral lung bases are clear. Prior granulomatous changes noted in the spleen, and to a lesser degree the liver. Liver the liver an d spleen are otherwise unremarkable. The bilateral adrenal glands, gallbladder, and pancreas have a normal noncontrast enhanced appearance. The bilateral kidneys are grossly unremarkable in appearance. There is no evidence of nephrolithiasis or obstructive uropathy. The ureters are normal in course and caliber. The bladder is grossly unrema rkable. There is no significant free fluid or free air in the abdomen or pelvis. There is no evidence of bowel obstruction or significant inflamatory change. The appendix is well visualized and grossly normal. There is no acute osseous abnormality identified. Impression: 1. No evidence of acute intra-abdominal abnormality 2. No evidence of nephrolithiasis or acute obstructive uropathy. CT DOSING PQRS STATEMENT: One or more of the following individualized dose reduction techniques were utilized for this examinat ion: 1. Automated exposure control 2. Adjustment of the mA and/or kV according to patient size 3. Use of iterative reconstruction technique Electronically signed by: Flynn Sommer MD (06/08/2021 9:43 AM) [id number]
[2021-06-08 09:59] LABS: BACTERIA,URINE FEW /HPF (0-FEW); RBC,URINE 0 /HPF (0-2); WBC,URINE 0 /HPF (0-4)
[2021-06-08] MEDS ORDERED: SULF1TAB24 PO (10:49)
[2021-06-08 11:04] VITALS: BP 152/69
[2021-06-08] MEDS ORDERED: cefTRIAXone IV Push 1 GM VIAL. IVP ONE (11:15)
== END 2021-06-08 11:05 | disposition home or self-care (01) ==
LOC: ER 08:20
DX: N39.0 Urinary tract infection, site not specified (principal); J44.9 Chronic obstructive pulmonary disease, unspecified; F17.200 Nicotine dependence, unspecified, uncomplicated; Z98.51 Tubal ligation status; Z87.442 Personal history of urinary calculi; Z88.6 Allergy status to analgesic agent; Z88.5 Allergy status to narcotic agent; Z88.8 Allergy status to other drugs, medicaments and biological substances
CPT/HCPCS: 36415; 74176; 80053; 81001; 83735; 85025; 87086; 96360; 99284; J7030

== ENCOUNTER 2021-08-14 08:37 | Emergency (ER) | payer SELFPAY ==
[~2021-08-14] VITALS: Ht 162.6 cm; Wt 69.0 kg
[2021-08-14] MEDS ORDERED: diphenhydrAMINE HCL 25 MG CAPSULE PO ONE (09:45)
[2021-08-14] MEDS ORDERED: IPRATRPIUM/ALBUTEROL 0.5/2.5MG 3 ML NEBU. NEB ONE (09:45)
[2021-08-14] MEDS ORDERED: predniSONE 10 MG TABLET PO ONE (09:45)
--- NOTE | 2021-08-14 09:54 | RAD ---
AP chest. HISTORY: Cough and short of air AP view was taken of the chest. Comparison is made with a prior study from July 2017. Lungs are free of infiltrates. Heart is normal in size. There is no pleural effusion. IMPRESSION: 1. No acute chest disease. Electronically signed by: Roland Boyd MD (08/14/2021 9:51 AM) [id number]
[2021-08-14 10:02] LABS: BASO % 1 % (0-3); EOS # 0.1 x10^3/uL (0.0-0.7); EOS % 1 % (0-3); HEMATOCRIT 45.6 % (36.0-47.0); HEMOGLOBIN 14.9 g/dL (12.0-15.5); LYMPH # 2.6 x10^3/uL (1.0-4.8); LYMPH % 40 % (24-48); MEAN CORPUSCULAR HEMOGLOBIN 30 pg (25-35); MEAN CORPUSCULAR HGB CONC 33 g/dL (31-37); MEAN CORPUSCULAR VOLUME 92 fL (79-100); MONO # 0.3 x10^3/uL (0.0-1.1); MONO % 4 % (0-9); NEUT # 3.5 x10^3/uL (1.8-7.7); NEUT % 54 % (31-73); PLATELET COUNT 302 x10^3/uL (140-400); RED BLOOD COUNT 4.97 x10^6/uL (3.50-5.40); RED CELL DISTRIBUTION WIDTH 13.1 % (11.5-14.5); WHITE BLOOD COUNT 6.5 x10^3/uL (4.0-11.0)
--- NOTE | 2021-08-14 10:05 | PHYS DOC ---
Past Medical History Past Medical History: Asthma, COPD, Depression Additional Past Medical Histor: renal stones Past Surgical History: No Surgical History Smoking Status: Current Every Day Smoker Alcohol Use: None Drug Use: None General Adult EDM: Chief Complaint: SHORTNESS OF BREATH HPI: HPI: Patient is a 56-year-old female presents today with shortness of air. Patient states over the last 2 days she has had increased cough and wheezing, she also states that she has had dry itchy skin as well. Patient states she has a past medical history of asthma but does not take any medications for it she also states that she smokes on a daily basis. Patient denies chest pain, fever or chills, nausea or vomiting, or sweats associated with the shortness of breath. Patient states she has had her COVID and influenza vaccines. Review of Systems: Review of Systems: Constitutional: Denies fever or chills. [] Eyes: Denies change in visual acuity. [] HENT: Denies nasal congestion or sore throat. [] Respiratory: cough or shortness of breath. [] Cardiovascular: Denies chest pain or edema. [] GI: Denies abdominal pain, nausea, vomiting, bloody stools or diarrhea. [] : Denies dysuria. [] Musculoskeletal: Denies back pain or joint pain. [] Integument: Denies rash. [] Neurologic: Denies headache, focal weakness or sensory changes. [] Endocrine: Denies polyuria or polydipsia. [] Lymphatic: Denies swollen glands. [] Psychiatric: Denies depression or anxiety. [] Heart Score: C/O Chest Pain: No Risk Factors: Risk Factors: DM, Current or recent (<one month) smoker, HTN, HLP, family history of CAD, obesity. Risk Scores: Score 0 - 3: 2.5% MACE over next 6 weeks - Discharge Home Score 4 - 6: 20.3% MACE over next 6 weeks - Admit for Clinical Observation Score 7 - 10: 72.7% MACE over next 6 weeks - Early Invasive Strategies Current Medications: Current Medications Medications (Trade) Dose Ordered Sig/Yovani Start Time Stop Time Status Last Admin Dose Admin Albuterol/ Ipratropium (Duoneb) 3 ml 1X ONCE 08/14/21 09:45 08/14/21 09:46 DC 08/14/21 09:51 3 ML Diphenhydramine HCl (Benadryl) 25 mg 1X ONCE 08/14/21 09:45 08/14/21 09:46 DC 08/14/21 09:45 25 MG Prednisone (Prednisone) 50 mg 1X ONCE 08/14/21 09:45 08/14/21 09:46 DC 08/14/21 09:45 50 MG Allergies: Allergies: Allergies Coded Allergies Type Severity Reaction Last Updated Verified aspirin Allergy Intermediate vomiting 06/08/21 Yes codeine Allergy Intermediate vomiting 06/08/21 Yes hydrocodone Allergy Intermediate vomiting 06/08/21 Yes ibuprofen Allergy Intermediate UNKNOWN 06/08/21 Yes oxycodone Allergy Intermediate UNKNOWN 06/08/21 Yes Physical Exam: PE: Constitutional: Well developed, well nourished, no acute distress, non-toxic appearance. [] HENT: Normocephalic, atraumatic, bilateral external ears normal, oropharynx moist, no oral exudates, nose normal. [] Eyes: PERRLA, EOMI, conjunctiva normal, no discharge. [] Neck: Normal range of motion, no tenderness, supple, no stridor. [] Cardiovascular:Heart rate regular rhythm, no murmur [] Lungs & Thorax: Bilateral breath sounds wheezes, productive cough, no increase work of breathing, able to talk in complete sentences Abdomen: Bowel sounds normal, soft, no tenderness, no masses, no pulsatile masses. [] Skin: Warm, dry, no erythema, no rash. [] Back: No tenderness, no CVA tenderness. [] Extremities: No tenderness, no cyanosis, no clubbing, ROM intact, no edema. [] Neurologic: Alert and oriented X 3, normal motor function, normal sensory function, no focal deficits noted. [] Psychologic: Affect normal, judgement normal, mood normal. [] Current Patient Data: Labs: Laboratory Tests Test 08/14/21 09:55 White Blood Count 6.5 x10^3/uL Red Blood Count 4.97 x10^6/uL Hemoglobin 14.9 g/dL Hematocrit 45.6 % Mean Corpuscular Volume 92 fL Mean Corpuscular Hemoglobin 30 pg Mean Corpuscular Hemoglobin Concent 33 g/dL Red Cell Distribution Width 13.1 % Platelet Count 302 x10^3/uL Neutrophils (%) (Auto) 54 % Lymphocytes (%) (Auto) 40 % Monocytes (%) (Auto) 4 % Eosinophils (%) (Auto) 1 % Basophils (%) (Auto) 1 % Neutrophils # (Auto) 3.5 x10^3/uL Lymphocytes # (Auto) 2.6 x10^3/uL Monocytes # (Auto) 0.3 x10^3/uL Eosinophils # (Auto) 0.1 x10^3/uL Basophils # (Auto) 0.0 x10^3/uL Sodium Level 140 mmol/L Potassium Level 4.1 mmol/L Chloride Level 105 mmol/L Carbon Dioxide Level 27 mmol/L Anion Gap 8 Blood Urea Nitrogen 12 mg/dL Creatinine 1.0 mg/dL Estimated GFR (Cockcroft-Gault) 57.8 BUN/Creatinine Ratio 12 Glucose Level 96 mg/dL Calcium Level 9.3 mg/dL Total Bilirubin 0.5 mg/dL Aspartate Amino Transf (AST/SGOT) 16 U/L Alanine Aminotransferase (ALT/SGPT) 15 U/L Alkaline Phosphatase 99 U/L Troponin I High Sensitivity 6 ng/L Total Protein 7.5 g/dL Albumin 3.4 g/dL Albumin/Globulin Ratio 0.8 Current Medications Medications (Trade) Dose Ordered Sig/Yovani Route PRN Reason Start Time Stop Time Status Last Admin Dose Admin Albuterol/ Ipratropium (Duoneb) 3 ml 1X ONCE NEB 08/14/21 09:45 08/14/21 09:46 DC 08/14/21 09:51 Diphenhydramine HCl (Benadryl) 25 mg 1X ONCE PO 08/14/21 09:45 08/14/21 09:46 DC 08/14/21 09:45 Prednisone (Prednisone) 50 mg 1X ONCE PO 08/14/21 09:45 08/14/21 09:46 DC 08/14/21 09:45 Vital Signs: Vital Signs Date Time Temp Pulse Resp B/P (MAP) Pulse Ox O2 Delivery O2 Flow Rate FiO2 08/14/21 11:45 86 16 135/85 (102) 100 08/14/21 11:02 100 Room Air Vital Signs Date Time Temp Pulse Resp B/P (MAP) Pulse Ox O2 Delivery O2 Flow Rate FiO2 08/14/21 09:51 98 Room Air 08/14/21 09:25 97.4 100 17 129/59 (82) 97.4 EKG: EKG: EKG done at [address] Araujo at 925 shows sinus rhythm at a rate of 56 with no ectopy with a IN interval of 170 ms with a QTC of 394 ms no STEMI [] Radiology/Procedures: Radiology/Procedures: REASON: cough and soa PROCEDURE: CHEST AP ONLY AP chest. HISTORY: Cough and short of air AP view was taken of the chest. Comparison is made with a prior study from July 2017. Lungs are free of infiltrates. Heart is normal in size. There is no pleural effusion. IMPRESSION: 1. No acute chest disease. Electronically signed by: Roland Boyd MD (08/14/2021 9:51 AM) [id number] [] Course & Med Decision Making: Course & Med Decision Making Pertinent Labs and Imaging studies reviewed. (See chart for details) 1110 reassessment of patient after her second albuterol treatment shows decrease in wheezing patient states her shortness of breath is much improved and her coughing is diminished. We will treat patient on an outpatient basis for exacerbation of her asthma and bronchitis, patient is also encouraged to stop smoking and to follow-up with her primary care physician or one of the clinics listed on her discharge instructions for establishment of care and to have further evaluation and management of her asthma. Yaquelin Disclaimer: [facility] Disclaimer: This electronic medical record was generated, in whole or in part, using a voice recognition dictation system. Departure Departure Impression: Primary Impression: Exacerbation of asthma Qualified Codes: J45.21 - Mild intermittent asthma with (acute) exacerbation Additional Impression: Bronchitis Disposition: 01 HOME / SELF CARE / HOMELESS Condition: STABLE Referrals: NO PCP (PCP) Patient Instructions: Acute Bronchitis, Asthma, Adult, Smoking Cessation Additional Instructions: Albuterol inhaler take 2 puffs every 4 hours as needed for shortness of air and wheezing Prednisone 50 mg take as directed daily for 5 days Zithromax take as directed [id number] Claritin, Zyrtec, or Sonya daily [id number] Flonase nasal spray take 2 puffs each side of the nose twice daily Stop smoking Follow-up with your primary care physician or one of the listed clinics below for further evaluation and medical management of your asthma return here Return here to the emergency department should you have increased shortness of breath, fever that is not treated with Tylenol and/or ibuprofen or bluing of your lips or face Scripts Azithromycin (ZITHROMAX) 250 Mg Tablet 1 PKG PO UD, #6 TAB take two tablets day 1 then take one tablet daily for next 4 days. Prov: AUGUST [employer] 08/14/21 Prednisone (PREDNISONE) 50 Mg Tablet 1 TAB PO DAILY, #5 TAB Prov: A[employer]UST [employer] 08/14/21 Albuterol Sulfate (PROAIR HFA INHALER) 8.5 Gm Hfa.aer.ad 2 PUFF IH PRN Q4-6HRS PRN for wheezing, #1 INHALER 0 Refills Prov: AUGUST EAGLE [employer] 08/14/21 AUGUST EAGLE APRN Aug 14, 2021 10:05
[2021-08-14 10:16] LABS: CALCIUM 9.3 mg/dL (8.5-10.1); GFR 57.8; POTASSIUM 4.1 mmol/L (3.5-5.1)
[2021-08-14 10:23] LABS: ALBUMIN 3.4 g/dL (3.4-5.0); ALBUMIN/GLOBULIN RATIO 0.8 (1.0-1.7); TOTAL BILIRUBIN 0.5 mg/dL (0.2-1.0); TOTAL PROTEIN 7.5 g/dL (6.4-8.2)
[2021-08-14] MEDS ORDERED: ALBUTEROL SULFATE 2.5 MG/3 ML NEBU. NEB ONE (11:00)
[2021-08-14] MEDS ORDERED: PRED50TA PO (11:23)
[2021-08-14] MEDS ORDERED: AZIT250T PO (11:23)
[2021-08-14] MEDS ORDERED: ALBU2.5V8 IH (11:23)
[2021-08-14 11:45] VITALS: BP 135/85
== END 2021-08-14 12:01 | disposition home or self-care (01) ==
LOC: ER 08:37
DX: J44.9 Chronic obstructive pulmonary disease, unspecified (principal); J45.21 Mild intermittent asthma with (acute) exacerbation; F17.200 Nicotine dependence, unspecified, uncomplicated; Z88.5 Allergy status to narcotic agent; Z88.6 Allergy status to analgesic agent; Z88.8 Allergy status to other drugs, medicaments and biological substances
CPT/HCPCS: 36415; 71045; 80053; 84484; 85025; 94640; 99285; J7512; J7613; Q0163